=== PATIENT | male | born 1975 | race Caucasian/White ===

== ENCOUNTER 2025-02-15 15:52 | Emergency (ER) | payer BC, OTHER ==
[~2025-02-15] VITALS: Ht 170.2 cm; Wt 87.0 kg
[2025-02-15 16:02] VITALS: O2SAT 95
[2025-02-15] MEDS: ONDANSETRON HCL 4MG/2ML INJ IV STA (16:50)
[2025-02-15] MEDS: MORPHINE SULFATE 4 MG/ML INJ (FOR IV/IM USE) IV STA (16:51)
[2025-02-15 16:58] LABS: BASOPHILS % 0.3 % (0.0-2.0); EOSINOPHILS % 1.8 % (0.0-5.0); HEMATOCRIT. 44.1 % (42.0-52.0); HEMOGLOBIN. 14.7 g/dL (14.0-18.0); LYMPHOCYTES % 42.5 % (20.0-50.0); MEAN CORPUSCULAR HEMOGLOBIN 29.6 pg (28.0-32.0); MEAN CORPUSCULAR HGB CONC 33.3 g/dL (31.0-37.0); MEAN CORPUSCULAR VOLUME 88.9 fL (80.0-94.0); MEAN PLATELET VOLUME 9.9 fl (7.4-10.4); MONOCYTES % 9.2 % (2.0-8.0); NEUTROPHILS % 46.2 % (40.0-76.0); PLATELET 198 x1000/uL (130-400); RED BLOOD CELL COUNT 4.96 mill/uL (4.7-6.1); RED CELL DISTRIBUTION WIDTH 15.3 % (11.6-14.6); WHITE BLOOD COUNT 8.2 x1000/uL (4.5-11.0)
[2025-02-15 16:59] LABS: POTASSIUM 3.8 mEq/L (3.5-5.1)
[2025-02-15 17:01] LABS: CALCIUM 8.8 mg/dL (8.7-10.4)
[2025-02-15 17:05] LABS: CREATININE 1.3 mg/dL (0.6-1.3)
[2025-02-15 18:01] VITALS: BP 110/78; PULSE 77; RESP 13; TEMP 36.6; O2SAT 94
[2025-02-15] MEDS ORDERED: T3 PO (18:22)
[2025-02-15] MEDS ORDERED: CYCL10TA21 MT (18:22)
== END 2025-02-15 18:44 | disposition home or self-care (01) ==
LOC: ER 15:52
DX: G89.29 Other chronic pain (principal); M54.50 Low back pain, unspecified; Z88.9 Allergy status to unspecified drugs, medicaments and biological substances
CPT/HCPCS: 99285; 72148; 96374; 96375; 80048; 85025; 36415; J2405; J2270